=== PATIENT | female | born 1960 | race Caucasian/White ===

== ENCOUNTER 2019-01-17 05:32 | Inpatient (IN) | payer OTHER ==
--- NOTE | 2018-12-31 08:02 | HP ---
PREOPERATIVE HISTORY AND PHYSICAL: DATE OF SURGERY/ADMISSION: 01/17/19 DATE OF OFFICE VISIT/ENCOUNTER: 12/26/18 ATTENDING SURGEON: Bruce Doherty MD * (DICTATED BY SANDIP SHAIKH) PROCEDURE: Right shoulder arthroscopic decompression, likely Biologic patch versus arthroscopic rotator cuff repair, possible biceps release. HISTORY OF PRESENT ILLNESS: This is a 58-year-old female right-hand dominant who works at [employer]. She was referred to Dr. Doherty from an outside surgeon. The patient is complaining of right shoulder pain for 15 months since September of 2017. She had right shoulder surgery in 2018. At that time, she underwent a right shoulder arthroscopic subacromial depression debridement, open distal clavicle resection. Unfortunately, the patient responded insufficiently to postoperative physical therapy as well as a cortisone injection in the subacromial space postoperatively. She reports that since her surgery in March of 2018, the patient's pain has continued and has worsened. The patient was noted intraoperatively to have an undersurface articular-sided tear 10% of supraspinatus and then an MRI was performed more recently that shows an increase in the size of the undersurface tear of the supraspinatus. Because the patient has responded to her rehabilitation program after her first surgery and with the passage of time, it has been 9 months, Dr. Doherty is recommending revision surgery and the patient has consented to proceed. PAST MEDICAL HISTORY: 1. Hypertension. 2. COPD. 3. Osteoarthritis. 4. Depression/anxiety. 5. Hypocholesterolemia. 6. Diabetes. PAST SURGICAL HISTORY: 1. Right shoulder arthroscopy. 2. Right knee arthroscopy. 3. x2. 4. Bilateral carpal tunnel releases. 5. Bilateral De Quervain releases. CURRENT MEDICATIONS: 1. Atorvastatin calcium 20 mg daily. 2. Buspirone HCL 15 mg 3 times daily. 3. Citalopram hydrobromide 40 mg daily. 4. Glimepiride 2 mg twice daily. 5. Isosorbide mononitrate ER 30 mg once daily. 6. Lisinopril 5 mg daily. 7. Metformin HCl ER 750 mg daily. 8. Nystop apply powder p.r.n. 9. Symbicort inhale 1 puff twice a day. 10. Tizanidine HCl 4 mg 1 tab daily. 11. Trulicity 0.75 mg/0.5 mg inject subcu once a week. ALLERGIES: No known drug allergies. FAMILY MEDICAL HISTORY: Diabetes, cancer. SOCIAL HISTORY: The patient is employed at [employer] in [place]. She is a current smoker. She smokes a pack per day and has done so for 44 years. She denies recreational drug use and does not drink alcohol. REVIEW OF SYSTEMS: Negative for general, cephalic, cardiovascular, respiratory , GI, , other musculoskeletal, integumentary, endocrine, neurologic and hematologic symptoms. Infectious Disease: Negative for MRSA, hepatitis C, and HIV. PHYSICAL EXAMINATION GENERAL: Well-developed, well-nourished, 58-year-old female, in no acute distress. VITAL SIGNS: Height 5 feet 6 inches, weight 241 pounds, pulse rate 72, blood pressure 126/72. HEENT: Normocephalic, atraumatic. Pupils are equal, round and reactive to light and accommodation. Extraocular movements are intact. NECK: Supple. No palpable lymph nodes. Throat is clear. PULMONARY: Lungs are clear to auscultation bilaterally. No wheezes, rales or rhonchi. CARDIOVASCULAR: Regular rate and rhythm. S1, S2. No murmurs, rubs or gallops. No edema. ABDOMEN: Positive bowel sounds, soft, nontender. NEUROLOGIC: Alert and oriented x3. Cranial nerves II through XII are intact. Sensation is intact to light touch. MUSCULOSKELETAL: On exam of the right shoulder, passive range of motion to 160 degrees of forward flexion, 80 degrees of external rotation and 80 degrees and internal rotation. There is pain at end ranges. Positive Neer's and Holloway- Thang impingement test. Positive pain with supraspinatus stress testing. Positive lateral shoulder pain with Speed's and [place]'s Test. Positive AC joint and proximal biceps tenderness to palpation. DIAGNOSTIC STUDIES/LAB DATA: X-rays of the right shoulder demonstrates AC joint narrowing and spurs as well as evidence of a subacromial depression. MRI of the right shoulder shows significant atrophy of the teres minor muscle, mild to moderate atrophy of the supraspinatus muscle. Clear under surface tear without retraction on the articular side of the supraspinatus. There is a low- grade partial thickness under-sided infraspinatus tear. IMPRESSION: 1. Right shoulder rotator cuff tendonitis, partial thickness under surface tear suprapsinatus tendon, possible infraspinatus tendon 2. Possible right shoulder proximal biceps tendinosis 3. Status post outside hospital 04/09/18 right shoulder surgery consisting of arthroscopic subacromial decompression debridement, open distal clavicle resection, and evaluation of rotator cuff PLAN: The patient is scheduled to undergo a right shoulder arthroscopic decompression, likely biologic patch versus arthroscopic rotator cup repair, possible biceps release with Dr. Doherty on 01/17/19. She will return to the office in 10 to 14 days postop for followup and suture removal. The patient takes tizanidine for chronic low back pain and so we will review further options for postoperative pain management on the day of surgery. SANDIP SHAIKH [id number]/[facility] #: [id number] MTDD
[~2019-01-17 05:32] MED LIST: Buffered Lidocaine 1% SYRIN* 1 ML/SYRINGE INTRADERM ONE
[2019-01-17] MEDS ORDERED: Metoclopramide IV* 5 MG/ML 2 ML VIAL IV SLOW PU ONE (06:00)
[2019-01-17] MEDS ORDERED: Lactated Ringers 1000 ML Bag* 1,000 ML IV SCH (06:00)
[2019-01-17] MEDS ORDERED: Famotidine TAB* 20 MG PO ONE (06:00)
[2019-01-17] MEDS ORDERED: ceFAZolin 2 GM in NS PREMIX(*) 2 GM/100 ML BAG IVPB ONE (06:04)
[2019-01-17] MEDS ORDERED: Metoclopramide IV* 5 MG/ML 2 ML VIAL ONE (06:04)
[2019-01-17] MEDS ORDERED: Famotidine IV* 10 MG/ML 2 ML (20 mg) ONE (06:04)
[2019-01-17] MEDS ORDERED: Famotidine TAB* 20 MG ONE (06:28)
[2019-01-17] MEDS ORDERED: Bupivacaine 0.5% W/EPI SDV* 30 ML VIAL ONE (06:56)
[2019-01-17] MEDS ORDERED: EPINEPHRINE 1 MG/ML 1 ML VIAL ONE (06:56)
[2019-01-17] MEDS ORDERED: Rocuronium* 10 MG/ML VIAL ONE (07:09)
[2019-01-17] MEDS ORDERED: fentaNYL* 50 MCG/ML 2 ML VIAL (100 MCG VIAL) ONE (07:09)
[2019-01-17] MEDS ORDERED: Midazolam* 1 MG/ML 2 ML VIAL (2 MG) ONE (07:09)
[2019-01-17] MEDS ORDERED: Propofol* 10 MG/ML 20 ML BTL ONE (07:10)
[2019-01-17] MEDS ORDERED: Succinylcholine* 20 MG/ML 10 ML VIAL ONE (07:10)
[2019-01-17] MEDS ORDERED: ROPIVACAINE 5 MG/ML 30 ML BTL (0.5%) ONE (07:24)
[2019-01-17] MEDS ORDERED: Lidocaine 1% MPF ** 5 ML VIAL ONE (07:25)
[2019-01-17] MEDS ORDERED: Acetaminophen TAB* 325 MG PO PRN (08:22)
[2019-01-17] MEDS ORDERED: fentaNYL* 50 MCG/ML 2 ML VIAL (100 MCG VIAL) IV PRN (08:22)
[2019-01-17] MEDS ORDERED: oxyCODONE/Acetamin 5/325 MG* TAB PO PRN (08:22)
[2019-01-17] MEDS ORDERED: Naloxone* 0.4 MG/ML 1 ML VIAL IV PRN (08:22)
[2019-01-17] MEDS ORDERED: Ketorolac INJ* 30 MG/ML 1 ML VIAL IV PRN (08:22)
[2019-01-17] MEDS ORDERED: DiMENhydriNATE IV* 50 MG/ML VIAL IV PUSH PRN (08:22)
[2019-01-17] MEDS ORDERED: Glycopyrrolate IV* 0.2 MG/ML 1 ML VIAL ONE (08:35)
[2019-01-17] MEDS ORDERED: Neostigmine Methylsulfate* 3 MG/3 ML SYRINGE ONE (08:35)
[2019-01-17] MEDS ORDERED: Ondansetron INJ* 2 MG/ML VIAL ONE (08:43)
[2019-01-17] MEDS ORDERED: Levalbuterol 1.25MG/0.5ML NEB ONE ×2 (09:20→09:31)
[2019-01-17] MEDS ORDERED: Propofol* 100 ML ONE (09:32)
[2019-01-17] MEDS ORDERED: Propofol* 100 ML IV SCH ×2 (10:00→10:17)
[2019-01-17] MEDS ORDERED: Chlorhexidine MOUTHWASH 0.12%* 15 ML UDC TOPICAL SCH (11:00)
[2019-01-17] MEDS: Lactated Ringers 1000 ML Bag* 1,000 ML IV SCH (11:00)
[2019-01-17 11:27] LABS: Urine Appearance Cloudy; Urine Bilirubin Negative (Negative); Urine Blood Negative (Negative); Urine Color Yellow; Urine Glucose Negative (Negative); Urine Ketones Negative (Negative); Urine Nitrite Negative (Negative); Urine Protein Negative (Negative); Urine Specific Gravity 1.013 (1.010-1.030); Urine Urobilinogen Negative (Negative)
[2019-01-17] MEDS ORDERED: Dextrose 50% Syringe 50 ML* 25 GM/50 ML SYRINGE IV PUSH PRN (11:27)
[2019-01-17] MEDS: Insulin LISPRO* 1 UNITS UNIT SUBCUT SCH ×3 (11:40→23:41)
[2019-01-17] MEDS: Chlorhexidine MOUTHWASH 0.12%* 15 ML UDC TOPICAL SCH ×4 (11:40→23:42)
--- NOTE | 2019-01-17 11:48 | PN ---
Progress Note - Progress Note Date of Service: 01/17/19 Note: Anesthesia Post-operative course: Mrs. Pink is a 58 y/o F with a PMH of morbid obesity, HTN, mild COPD, DM II who underwent a right shoulder arthoscopic shoulder procedure on 01/17/19 under general anesthesia with an endotracheal tube and left interscalene peripheral nerve block. The pt's intra-operative course was uneventful. The pt received very little narcotic due to her peripheral nerve block controlling post- operative pain. The pt's paralytic was also adequately reversed before emergence. The pt had moderate tidal volumes with spontaneous respirations on the ventilator in the OR during emergence, which can be common for pts with morbid obesity and COPD. The pt's O2 saturation in the OR at the time was 98% and it was deteremined to be safe to extubate the pt at the time. The pt was transported to PACU with an O2 FM at 10 L/min and and oropharyngeal airway. Upon arrival to PACU it was evident the pt was struggling to maintain spontaneous respirations. The pt's became tachypneic, O2 requirements were increasing and she began to desaturate. Auscultations of the lungs revealed severe diffuse wheezing. The pt was given a xopenex nebulizer breathing treatment, however her status did not improve. The pt's O2 sat dropped to 75% and began to become agitated and confused. It was determined that the pt required re-intubation for respiratory failure. The pt was tachycardic, but hemodynamically stable at this time. She was bolused 150 mg Propofol IV and 140 mg Succinylcholine IV. The pt was reintubated with a MAC 4 layrngoscope and 7.0 ETT. The pt's O2 sat began to immediately improve and the pt was stabilized. The pt was then transported to the ICU in stable condition with standard ASA monitors. ICU was consulted for acute respiratory failure secondary to COPD exacerbation and Right hemidiaphragm paralysis. Report was given to Dr. Kruse and his ICU team and all questions were answered. I personally spoke with the pt's about the post-operative complications and reassured him that she was in stable condition at this time. He understood and I answered all his questions.
[2019-01-17] MEDS ORDERED: Lansoprazole SUSP* ORALSYR 3 MG/ML G TUBE SCH (12:00)
[2019-01-17] MEDS: Propofol* 100 ML IV SCH ×5 (12:05→23:05)
--- NOTE | 2019-01-17 12:34 | CONS ---
CRITICAL CARE CONSULTATION: DATE OF CONSULT: 01/17/19 HISTORY OF PRESENT ILLNESS: The patient is 58-year-old female seen postop day # 0 from a right shoulder arthroscopic procedure for which the patient underwent general anesthesia and a scalene block. The patient was extubated postoperatively, but became hypoxic and remained deep despite being fully reversed and was reintubated in the PACU. She is transferred to the intensive care unit, sedated, hemodynamically stable on 60% FiO2 with the saturation in the mid 90s. I discussed the case extensively with the anesthesiologist. There were no intraoperative concerns. Working diagnosis is that she is just taking a little bit longer to wash out and that perhaps her scalene block migrated in a vulnerable patient and has left her with some right-sided diaphragmatic weakness which is expected to wane over the next 6 to 12 hours. PAST MEDICAL HISTORY: Significant for hypertension, COPD, osteoarthritis, depression, anxiety, hypercholesterolemia, and diabetes. PAST SURGICAL HISTORY: Remarkable for right shoulder arthroscopy in the past, right knee arthroscopy, x2, bilateral carpal tunnel releases, and bilateral de Quervain releases. MEDICATIONS: Include: 1. Lipitor 20 mg daily. 2. BuSpar 15 mg 3 times a day. 3. Citalopram 40 mg daily. 4. Glimepiride 2 mg twice daily. 5. Isosorbide mononitrate ER 30 mg once daily. 6. Lisinopril 5 mg daily. 7. Metformin HCL ER 750 mg daily. 8. Nystatin powder as needed. 9. Symbicort inhaler 1 puff twice daily. 10. Tizanidine 4 mg 1 tab daily. 11. Trulicity 0.75 mg/0.5 mg injection subcutaneously once a week. ALLERGIES: No known drug allergies. FAMILY HISTORY: Diabetes and malignancy. SOCIAL HISTORY: She is employed at [employer] in [place]. She is a current smoker, smoking about a pack per day, has done so for 44 years. Does not drink alcohol. Denied recreational drug use. REVIEW OF SYSTEMS: Unobtainable for me as she remains sedated on Diprivan. PHYSICAL EXAM: She is normocephalic, atraumatic. Pupils equal, somewhat constricted, but reactive to light. Neck is supple, nontender without JVD. Lungs had coarse entry and some expiratory wheezing bilaterally. She is S1, S2 regular. Abdomen is soft, obese, not apparently tender, nondistended. Positive bowel sounds. Right shoulder is dressed and placed in an immobilizer, distal cap refill intact. Lower extremities without edema. She is sedated. She has some tone x4. DIAGNOSTIC STUDIES/LAB DATA: Laboratory evaluations remarkable only for a glucose of 184. Chest x-ray is pending. ASSESSMENT AND PLAN: This is a 58-year-old female, past medical history significant for chronic obstructive pulmonary disease, obesity, hypertension, hyperlipidemia, and diabetes, who is seen postop day #0 from a right shoulder arthroscopy complicated by postop respiratory failure felt to be likely precipitated by her scalene block and a slow washout of her general anesthesia. At this time, I have ordered a chest x-ray. She is on 60% FiO2 which is a bit high. She was noted to be wheezing by the anesthesiologist prior to and post reintubation. He felt the airway looked clean by report. If she does continue to wheeze at this time, we will add some bronchodilators. Certainly, we will be looking for any evidence of pulmonary edema or aspiration or more rare events such as a popped pneumatocele, though that is felt to be unlikely and she has good bilateral breath sounds with good compliance on the ventilator when considering her weight. We will get her on some subcu insulin to control her glucose. We will place an OG tube, start her on some Glucerna. I have ordered SCDs. I anticipate we will be able to start subcu heparin. I await for clearance from Ortho. Assuming we find no other sources of today's events, I will plan on an extubation tomorrow morning and keeping her comfortable on Diprivan with some fentanyl as needed through the afternoon and night. TIME SPENT: The aggregate time providing critical care at the bedside as well as personally interpreting laboratory evaluations, reviewing the medical records, discussing the case with the attending anesthesiologist and receiving the patient on arrival in the ICU has thus far exceeded 40 minutes. [id number]/[facility] #: [id number] ARMAAN
[2019-01-17] MEDS: busPIRone TAB* 15 MG PO SCH ×2 (14:03→20:29)
--- NOTE | 2019-01-17 14:51 | OP ---
OPERATIVE NOTE: DATE OF SURGERY: 01/17/19 DATE OF : 64 SURGEON: Dr. Bruce Doherty. ONLINE PROGRAM COORDINATOR: SANDIP Lafleur. A physician assistant merchandise manager was required for the length of the procedure for assistance with patient positioning, instrumentation, and closure. ANESTHESIOLOGIST: Dr. Bruce Lux. ANESTHESIA: General anesthesia, regional interscalene block anesthesia. PRE-OPERATIVE DIAGNOSES: 1. Right shoulder rotator cuff tendinitis, partial thickness undersurface tear supraspinatus tendon, possible infraspinatus tendon. 2. Possible right shoulder proximal biceps tendinosis. 3. Status post prior right shoulder surgery at an outside hospital, 04/09/18, consisting of right shoulder arthroscopic subacromial decompression, open distal clavicle resection, evaluation of rotator cuff. POST-OPERATIVE DIAGNOSES: 1. Right shoulder rotator cuff tendinitis, partial thickness undersurface tear supraspinatus, infraspinatus, low grade. 2. Right shoulder subacromial bursitis, impingement. 3. Right shoulder proximal biceps tendinosis. 4. Status post right shoulder surgery at outside hospital, 04/09/18, consisting of arthroscopic subacromial decompression, open distal clavicle resection, evaluation of rotator cuff. OPERATIVE PROCEDURES: 1. Right shoulder arthroscopic rotator cuff repair, supraspinatus, infraspinatus, low-grade partial-thickness tear with REGENETEN biologic patch. 2. Right shoulder arthroscopic subacromial decompression and subacromial bursectomy. 3. Right shoulder arthroscopic proximal biceps tendon release, debridement superior labrum. ANTIBIOTICS: Ancef 2 g IV. IV FLUIDS: 1300 cc crystalloid. VKTC-AJ-CILY TIME: 43 minutes. ARTHROSCOPIC FLUID UTILIZED: 3.5 bags of 3 liters each for a total of 10.5 liters. SPECIMEN: None. IMPLANTS: [employer] REGENETEN biologic patch, size large. COMPLICATIONS: None. ESTIMATED BLOOD LOSS: 0 cc. INDICATIONS FOR PROCEDURE: The patient is a 58-year-old woman, right-hand dominant, who works at [employer], referred to me by an outside surgeon. The patient had had right shoulder pain since September 2017, over 1 year ago. She had right shoulder surgery, as described above, at an outside hospital in March 2018 after failing preoperatively nonoperative management. Postoperatively, the patient continued to suffer from pain. She was unable to fully return to work. She received an additional cortisone injection and many months of physical therapy. The patient described still significant pain in that right shoulder. The patient had done 4 months of physical therapy 3 times a week. As over 9 months had passed since the surgery and the patient had failed an appropriate continued course of physical therapy and cortisone injection and other nonoperative interventions, surgery was indicated. Postoperative MRI had shown some increase in size of the undersurface tear of the supraspinatus tendon. Outside surgeon had noted a 10% tear of the undersurface of the supraspinatus on prior surgery. On a more recent MRI, radiologist had described an increased size tear, perhaps 20% undersurface, more recently. Discussed risks and potential complications including bleeding, infection, nerve or blood vessel injury. On the day of surgery as well as in clinic, discussed possible biceps tendon treatment options including release and tenodesis, as I covered the relevant pros and cons of each. On the day of surgery, we decided definitively on a biceps release rather than tenodesis should the biceps need to be treated. I spoke with the patient preoperatively about the possibilities for treatment of the rotator cuff. These included REGENETEN biologic patch, suture anchors, or both. This would be if rotator cuff tearing was confirmed intraoperatively. DESCRIPTION OF PROCEDURE: In preoperative holding, the patient signed a written consent. Operative extremity was marked in the preoperative holding. Anesthesia performed a regional interscalene nerve block in preoperative holding. The patient was taken back to the operating room and placed supine on the operating room table. Sedated and intubated. The patient was converted to the lateral decubitus position. Axillary roll placed. All bony prominences padded. Perry bag hardened. The right upper extremity was placed in longitudinal traction with the appropriate amount of flexion and abduction with 15 degrees of traction. The patient was well secured to the table. The right shoulder area was prepped and then draped. A surgical time-out was performed. I entered the right shoulder glenohumeral joint from posterior using a spinal needle. 30 cc of normal saline were infused. I then established a posterior glenohumeral joint portal using standard technique. I commenced my diagnostic arthroscopy. No significant articular cartilage wear on either the glenoid or the humeral head. No loose bodies. I saw immediately a tremendous amount of hyperemia and fraying of the biceps anchor where the superior labrum transitions into the proximal long head biceps tendon. There was some hyperemia and synovitis, although reduced more distally along the long head biceps tendon. This appeared to be a clear pain generator. The rotator cuff was examined carefully. There was perhaps 2 mm of exposed undersurface footprint of both the supraspinatus and infraspinatus. I introduced an arthroscopic probe to confirm the length of missing tissue. There was no clear retracted tissue present, visible on the tendon's undersurface. I established an anterior glenohumeral joint portal using standard technique under direct visualization. I introduced an arthroscopic shaver. I used this and improved the view with it. Because of the long head biceps tendon findings, I decided to release the biceps tendon. I used an arthroscopic scissors from anterior to release the biceps tendon at its base. I used an arthroscopic shaver to lightly smooth out the superior aspect of the labrum. I also visualized that the subscapularis tendon was fully intact. I visualized the undersurface rotator cuff. I smoothed out some frayed tissue on its undersurface to better evaluate the amount of footprint visible with the dimensions mentioned earlier. I used a spinal needle to joceline what appeared to be the area of the largest defect of tendon on the undersurface. I placed that spinal needle in from the outside of the shoulder. I removed instruments and fluid from the glenohumeral joint. I then moved to the subacromial space. I established posterior and anterior subacromial space portals. What I encountered was significant subacromial bursitis. I used an arthroscopic shaver brought in through a lateral portal created under direct visualization. I debrided with the arthroscopic shaver a significant amount of subacromial bursitis. I localized where that spinal needle went into the rotator cuff. Once the bursitis had been cleared, I probed the rotator cuff in this location, first with an arthroscopic probe and then with a switching stick. There was no bursal -sided tearing. The bursal side generally looked inflamed but there was no even low-grade partial-thickness tear. Because of the limited low-grade nature of the tear found intraoperatively, despite that preoperative MRI had shown what looked to be a much more high- grade tear, 50% to 75% of the thickness, I was comfortable with proceeding with REGENETEN biologic patch alone. I made posterolateral and superolateral portals under direct visualization. I chose the large patch because of the involvement of the infraspinatus and supraspinatus. I laid the large REGENETEN biologic patch on rotator cuff tendon , supraspinatus, and infraspinatus, and I kept it in place with multiple PLLA kleber placed through the superolateral portal. The patch was incredibly stable. I confirmed this with probing as well as with rotation of the shoulder. I next addressed the acromion. The acromion had previously been nicely flattened out in prior surgery. To get the patient to benefit from possible exposed stem cells as well as to debride some slightly prominent bone anteromedially on the acromion, I performed a mild subacromial resection using an arthroscopic bur from lateral. This nicely flattened out the acromion. I removed instruments and fluid from the joint. Skin incisions were closed with [id number] 12 stitches using nylon 3-0 suture. Xeroform, 4x4s, ABDs, foam tape. Sling and abduction pillow. DISPOSITION: The patient was brought to the PACU after being lightened of sedation and extubated. The patient is to follow up in 10 to 14 days postoperatively in clinic with me. She will take Percocet as needed for pain control. She will use the sling and abduction pillow at least until she follows up with me in clinic. She will start physical therapy according to the REGENETEN biologic patch postoperative rehab protocol. Our office can provide one of those protocols as needed. Of note, in the PACU, the patient was struggling with her breathing. Anesthesia at first tried less-invasive approaches, but then decided that intubation was required. This was thought to be related to the patient's COPD and smoking, but unclear at this time why the patient was having difficulty breathing. The patient was extubated and is now recovering in the ICU. I will certainly follow this along until discharge. Of note, the patient will keep dressing intact for 3 days postoperative. Wound care instructions provided. [id number]/[facility] #: [id number] [facility]
--- NOTE | 2019-01-17 17:50 | PN ---
Progress Note - Progress Note Date of Service: 01/17/19 SOAP: Subjective: Patient underwent uneventful R shoulder arthroscopic rotator cuff repair with Regeneten biologic patch, subacromial decompression, biceps release. The procedure itself was an efficient 43 minutes long. Patient was extubated. In the PACU, she had labored breathing and desaturated. Her care was managed excellently by the anesthesiologist and the PACU team. She was intubated without incident and transferred to the PACU. Dr. Lux and ICU staff have left notes. The working diagnosis is respiratory insufficiency from a combination of COPD, smoking, and intrascalene nerve block. Plan is for extubation tomorrow. The patient's family is bedside and understands. Objective: RUE: - Sling in place Selected Entries 01/17/19 17:00 Temperature 98.8 F Heart Rate 83 Respiratory 14 Rate from CO2 Sensor Blood Pressure 124/80 (mmHg) O2 Sat by Pulse 98 Oximetry Laboratory Tests 01/17/19 01/17/19 06:14 10:56 POC Glucose (mg/dL) 184 H 211 H Assessment: POD 0 R shoulder arthroscopic rotator cuff repair with Regeneten biologic patch , subacromial decompression, biceps release Plan: - As above. ICU care. Likely extubation and discharge home tomorrow. - I am fine with anticoagulation at this point. I defer to ICU staff on heparin SQ versus alternative. - When extubated tomorrow, the original care plan will be unchanged.
[2019-01-17] MEDS ORDERED: Atorvastatin* 20 MG TAB PO SCH (21:00)
[2019-01-17] MEDS ORDERED: Lisinopril TAB* 5 MG PO SCH (21:00)
[2019-01-17] MEDS: fentaNYL* 50 MCG/ML 2 ML VIAL (100 MCG VIAL) IV PRN ×2 (21:18→23:42)
[2019-01-18] MEDS: Propofol* 100 ML IV SCH ×3 (00:56→06:10)
[2019-01-18] MEDS: Chlorhexidine MOUTHWASH 0.12%* 15 ML UDC TOPICAL SCH ×2 (04:26→08:01)
[2019-01-18] MEDS: fentaNYL* 50 MCG/ML 2 ML VIAL (100 MCG VIAL) IV PRN ×2 (04:26→08:00)
[2019-01-18 05:13] LABS: ABS Basophils 0.1 10^3/ul (0-0.2); ABS Eosinophils 0.1 10^3/ul (0-0.6); ABS Lymphocytes 1.4 10^3/ul (1.0-4.8); ABS Monocytes 0.7 10^3/ul (0-0.8); ABS Neutrophils 10.2 10^3/ul (1.5-7.7); Eosinophil % 1.2 %; Hematocrit 38 % (35-47); Hemoglobin 12.7 g/dL (12.0-16.0); Lymphocyte % 11.4 %; Mean Corpuscular HGB Conc 34 g/dL (31-36); Mean Corpuscular Hemoglobin 29 pg (27-31); Mean Corpuscular Volume 86 fL (80-97); Mean Platelet Volume 9.9 fL (7.4-10.4); Nucleated Red Blood Cells % 0.1; Platelet Count 333 10^3/uL (150-450); Red Blood Count 4.42 10^6 /uL (3.70-4.87); Red Cell Distribution Width 15 % (10-15); White Blood Count 12.6 10^3/uL (3.5-10.8)
[2019-01-18 05:23] LABS: ALT 10 U/L (7-52); Albumin 3.6 g/dL (3.2-5.2); Albumin/Globulin Ratio 1.3 (1-3); Alkaline Phosphatase 93 U/L (34-104); BUN/Creatinine Ratio 11.4 (8-20); Blood Urea Nitrogen 9 mg/dL (6-24); CO2 Carbon Dioxide 29 mmol/L (22-32); Calcium 9.2 mg/dL (8.6-10.3); Chloride 100 mmol/L (101-111); EGFR African American 91.1 (>60); EGFR Non-African American 75.3 (>60); Globulin 2.7 g/dL (2-4); Glucose 199 mg/dL (70-100); Sodium 135 mmol/L (135-145); Total Protein 6.3 g/dL (6.4-8.9)
[2019-01-18 05:35] LABS: Anion Gap 6 mmol/L (2-11)
[2019-01-18] MEDS: Insulin LISPRO* 1 UNITS UNIT SUBCUT SCH ×2 (06:09→12:47)
[2019-01-18] MEDS: Lactated Ringers 1000 ML Bag* 1,000 ML IV SCH (06:25)
[2019-01-18] MEDS: busPIRone TAB* 15 MG PO SCH ×2 (08:01→15:48)
[2019-01-18] MEDS ORDERED: Citalopram TAB* 40 MG PO SCH (09:00)
--- NOTE | 2019-01-18 09:33 | PN ---
Date of Service: 01/18/19 Critical Care Services: Uneventful night. Awake on ventilator. No complaints. Following commands. SBT then extubate is plan. Vital Signs: Temp Pulse Resp BP SpO2 FiO2 37.6 C 83 14 108/75 97 50 01/18/19 08:45 01/18/19 08:45 01/18/19 08:00 01/18/19 08:45 01/18/19 08:45 01/18 04:00 Physical Exam: Gen: Awake and without complaint on low dose diprivan HEENT: NCAT, PERRL, intubated, OGT in place Lungs: Coarse entry bilat Cardiac: S1S2 regular Abdomen: soft, NT, ND, +BS Extremities: appliance in place right shoulder, distal PMS intact, no LE edema Neuro: A& seems O, grossly non-focal within limits of an intubated and lightly sedated exam Fluid Balance (Past 24 Hours): I= O= Net Intake & Output 01/16/19 01/17/19 01/18/19 01/19/19 06:59 06:59 06:59 06:59 Intake Total 3538 152 Output Total 3030 315 Balance 508 -163 Weight 108.862 kg 115.3 kg Intake: IV Fluids 2674 LR 2674 Medicated IV 834 CC - Propofol/Diprivan 834 Oral 0 Tube Feeding 152 Tube Feeding Flush Amount 30 Output: Em 3030 315 Labs: Laboratory Results - last 24 hr 01/17/19 01/17/19 01/17/19 10:00 10:56 17:37 WBC RBC Hgb Hct MCV MCH MCHC RDW Plt Count MPV Neut % (Auto) Lymph % (Auto) [place] % (Auto) Eos % (Auto) Baso % (Auto) Absolute Neuts (auto) Absolute Lymphs (auto) Absolute Monos (auto) Absolute Eos (auto) Absolute Basos (auto) Absolute Nucleated RBC Nucleated RBC % Sodium Potassium Chloride Carbon Dioxide Anion Gap BUN Creatinine Est GFR ( Amer) Est GFR (Non-Af Amer) BUN/Creatinine Ratio Glucose POC Glucose (mg/dL) 211 H 134 H Calcium Total Bilirubin AST ALT Alkaline Phosphatase Total Protein Albumin Globulin Albumin/Globulin Ratio Urine Color Yellow Urine Appearance Cloudy Urine pH 5.0 Ur Specific [place] 1.013 Urine Protein Negative Urine Ketones Negative Urine Blood Negative Urine Nitrate Negative Urine Bilirubin Negative Urine Urobilinogen Negative Ur Leukocyte Esterase Negative Urine Glucose Negative 01/17/19 01/18/19 01/18/19 23:34 04:48 04:48 WBC 12.6 H RBC 4.42 Hgb 12.7 Hct 38 MCV 86 MCH 29 MCHC 34 RDW 15 Plt Count 333 MPV 9.9 Neut % (Auto) 80.9 Lymph % (Auto) 11.4 [place] % (Auto) 5.7 Eos % (Auto) 1.2 Baso % (Auto) 0.8 Absolute Neuts (auto) 10.2 H Absolute Lymphs (auto) 1.4 Absolute Monos (auto) 0.7 Absolute Eos (auto) 0.1 Absolute Basos (auto) 0.1 Absolute Nucleated RBC 0.0 Nucleated RBC % 0.1 Sodium 135 Potassium TNP Chloride 100 L Carbon Dioxide 29 Anion Gap 6 BUN 9 Creatinine 0.79 Est GFR ( Amer) 91.1 Est GFR (Non-Af Amer) 75.3 BUN/Creatinine Ratio 11.4 Glucose 199 H POC Glucose (mg/dL) 228 H Calcium 9.2 Total Bilirubin 0.30 AST TNP ALT 10 Alkaline Phosphatase 93 Total Protein 6.3 L Albumin 3.6 Globulin 2.7 Albumin/Globulin Ratio 1.3 Urine Color Urine Appearance Urine pH Ur Specific [place] Urine Protein Urine Ketones Urine Blood Urine Nitrate Urine Bilirubin Urine Urobilinogen Ur Leukocyte Esterase Urine Glucose 01/18/19 05:50 WBC RBC Hgb Hct MCV MCH MCHC RDW Plt Count MPV Neut % (Auto) Lymph % (Auto) [place] % (Auto) Eos % (Auto) Baso % (Auto) Absolute Neuts (auto) Absolute Lymphs (auto) Absolute Monos (auto) Absolute Eos (auto) Absolute Basos (auto) Absolute Nucleated RBC Nucleated RBC % Sodium Potassium TNP Chloride Carbon Dioxide Anion Gap BUN Creatinine Est GFR ( Amer) Est GFR (Non-Af Amer) BUN/Creatinine Ratio Glucose POC Glucose (mg/dL) Calcium Total Bilirubin AST TNP ALT Alkaline Phosphatase Total Protein Albumin Globulin Albumin/Globulin Ratio Urine Color Urine Appearance Urine pH Ur Specific [place] Urine Protein Urine Ketones Urine Blood Urine Nitrate Urine Bilirubin Urine Urobilinogen Ur Leukocyte Esterase Urine Glucose Studies: CXR with resolving right sided pneumonitis Nutrition: TF overnight, now on suction for extubation then when stable start PO Impression: 58 y/o female POD #1 right shoulder arthroscopy reintubated in PACU for hypoxia and somnolence felt to be secondary to combination of GA and scalene block in a pt with multiple comorbidities intubated overnight in ICU and awake and following commands this AM. SBT in progress with excellent mechanics on 16/ pulling 600cc at RR of 12 with SaO2 of 97% on .4 while still on low dose diprivan. Plan: Extubation this AM, after a period of observation will allow OOB and PO and ambulation progressively. If does well may be able to go home today. Restart the balance of available outpt medications. D/W pt and her family at bedside this AM. All voiced understanding and appreciation for the care. DM - glycemic control needs advancement, will restart her outpt regimen including full DM vascular disease panel of ASA, MICK and statin. HTN - MICK ordered HLD - statin ordered Anxiety/Depression - citalopram and buspar ordered. Critical Care Time: 30 minutes
--- NOTE | 2019-01-18 09:50 | PN ---
Progress Note - Progress Note Date of Service: 01/18/19 SOAP: Subjective: Still extubated, with imminent extubation planned. Objective: - Awake, responding to commands, intubated RUE: - in dressing and sling - actively moving spontaneously RUE Selected Entries 01/18/19 09:31 Temperature 99.9 F Heart Rate 93 Blood Pressure 102/66 (mmHg) O2 Sat by Pulse 91 Oximetry Laboratory Tests 01/18/19 04:48 WBC 12.6 H Assessment: POD 1 R shoulder rotator cuff repair with biologic patch, SAD, release biceps Postop respiratory distress thought to be secondary to COPD, smoking, regional nerve block Plan: - Per ICU staff plan, d/c to home after a period of observation following extubation - Otherwise, routine postop plan after shoulder surgery. Sling, PT, pain control oral.
--- NOTE | 2019-01-18 10:26 | DS ---
Orthopedic Discharge Summary - Discharge Summary Date of Admission:01/17/19 Date of Discharge: 01/18/2019 Date of Surgery: 01/17/2019 Attending Orthopedic Provider: Dr. Doherty Pre-operative Diagnosis: Right shoulder rotator cuff tear Operative Procedure: R shoulder arthroscopic rotator cuff repair with Regeneten biologic patch, subacromial decompression, biceps release Disposition of Patient: Home Condition of Patient: Stable History: SIXTO TERRY is a 58 year old F with a right shoulder rotator cuff tear. Patient has failed conservative management and has elected to undergo a R shoulder arthroscopic rotator cuff repair with Regeneten biologic patch, subacromial decompression, biceps release Hospital Course: SIXTO was admitted to [facility] on 01/17/19. Patient underwent a R shoulder arthroscopic rotator cuff repair with Regeneten biologic patch, subacromial decompression, biceps release without complication followed by a brief recovery in PACU. While in PACU she had labored breathing and desaturated. Her care was managed excellently by the anesthesiologist and the PACU team. She was intubated without incident and transferred to the ICU. She was observed overnight. POD 1 the pt was extubated and monitored in the ICU. She was deemed medically and orthopedically stable for discharge. Home Medications Medication Instructions Recorded Confirmed Type Aspir-81 81 mg PO BEDTIME 09/30/13 01/10/19 History Isosorbide Mononitrate 30 mg PO BEDTIME 09/30/13 01/10/19 History Atorvastatin* [Lipitor*] 20 mg PO BEDTIME 01/10/19 01/10/19 History Citalopram TAB* [CeleXA TAB*] 40 mg PO QAM 01/10/19 01/10/19 History Dulaglutide (NF) [Trulicity (NF)] 0.75 mg SUBCUT WEEKLY 01/10/19 01/10/19 History Glimepiride (NF) 2 mg PO BID 01/10/19 01/10/19 History Lisinopril TAB* [Prinivil TAB*] 5 mg PO BEDTIME 01/10/19 01/10/19 History Metformin HCl [Metformin HCl ER] 750 mg PO BID 01/10/19 01/10/19 History Tizanidine HCl 4 mg PO TID 01/10/19 01/10/19 History busPIRone TAB* [Buspar TAB *] 15 mg PO TID 01/10/19 01/10/19 History Discharge Instructions following Orthopedic Surgery: Activity: * Weight Bearing as tolerated * Continue physical therapy and occupational therapy exercises as shown Wound care: * OK to shower on post-op day 3, no bathing, swimming, or submerging wound. * Use gentle soap, pat dry. Cover with gauze, tape. * Visiting home nurse to do wound checks. Call Orthopedic office for: * Increased drainage * Redness * Increased pain * Fever Go to ER with shortness of breath or chest pain. Diet: * Regular diet * Increase fluids and fiber to prevent constipation. * Continue to use stool softeners, call office if no bowel motion within 48 hours. Medications See Home Medication List in your packet for medications that you should take after discharge. Pain Control: Percocet Dosin/325 mg 1-2 tabs by mouth every 4-6 hours as needed for pain. Maximum of 10 tabs per day. Please note that Percocet contains Tylenol (acetaminophen). Maximum daily dose of Tylenol is 4000 mg from all sources. FOLLOW UP: Follow up with Dr. Doherty Within 10-14 days, call for appointment Please call our office with any questions or concerns ([phone])
[2019-01-18] MEDS ORDERED: oxyCODONE/Acetamin 5/325 MG* TAB PO PRN (11:00)
[2019-01-18] MEDS ORDERED: Acetaminophen TAB* 325 MG PO PRN (11:00)
[2019-01-18 14:21] VITALS: BP 122/69
== END 2019-01-18 17:00 | disposition home or self-care (01) | DRG 315 ==
LOC: OR 05:32 → ICU 09:53
PROVIDERS: ADMIT Orthopaedic Surgery; ATTEND Orthopaedic Surgery
PROC: 0LU14JZ Supplement Right Shoulder Tendon with Synthetic Substitute, Percutaneous Endoscopic Approach (ICD-10-PCS; 2019-01-17)
PROC: 0LN14ZZ Release Right Shoulder Tendon, Percutaneous Endoscopic Approach (ICD-10-PCS; 2019-01-17)
PROC: 0BH17EZ Insertion of Endotracheal Airway into Trachea, Via Natural or Artificial Opening (ICD-10-PCS; 2019-01-17)
PROC: 5A1945Z Respiratory Ventilation, 24-96 Consecutive Hours (ICD-10-PCS; 2019-01-17)
PROC: 0RNJ4ZZ Release Right Shoulder Joint, Percutaneous Endoscopic Approach (ICD-10-PCS; principal; 2019-01-17 07:30)
DX: M75.101 Unspecified rotator cuff tear or rupture of right shoulder, not specified as traumatic (principal); J95.821 Acute postprocedural respiratory failure; J44.1 Chronic obstructive pulmonary disease with (acute) exacerbation; Z68.41 Body mass index [BMI] 40.0-44.9, adult; I10 Essential (primary) hypertension; M19.90 Unspecified osteoarthritis, unspecified site; F41.8 Other specified anxiety disorders; E11.9 Type 2 diabetes mellitus without complications; E78.5 Hyperlipidemia, unspecified; E66.01 Morbid (severe) obesity due to excess calories; F17.210 Nicotine dependence, cigarettes, uncomplicated; Z79.84 Long term (current) use of oral hypoglycemic drugs; Z79.899 Other long term (current) drug therapy; Z83.3 Family history of diabetes mellitus; Z80.9 Family history of malignant neoplasm, unspecified
CPT/HCPCS: 36415; 71045; 80053; 81003; 85025; 87641; 94002; A9270-GY; C1713; J0330; J0690; J2250; J2405; J2704; J2710; J2765; J2795; J3010